=== PATIENT | female | born 1955 | race Hispanic/Latino ===

== ENCOUNTER 2022-04-17 06:01 | Day surgery (SDC) | payer OTHER ==
[2022-04-14 09:57] LABS: Calcium 9.9 mg/dL (8.4-10.2)
[2022-04-14 10:00] LABS: Hematocrit 41.2 % (30.3-42.9); Hemoglobin 14.1 gm/dl (10.1-14.3); Mean Corpuscular HGB Conc 34 % (30-34); Mean Corpuscular Volume 85 fl (79-97); Platelet Count 241 K/mm3 (140-440); Red Blood Count 4.84 M/mm3 (3.65-5.03); Red Cell Distribution Width 14.1 % (13.2-15.2)
--- NOTE | 2022-04-16 13:26 | Anesthesia Consultation ---
Anesthesia Consult and Med Hx Date of service: 04/17/22 - Airway Anesthetic Teeth Evaluation: Good ROM Head & Neck: Adequate Mental/Hyoid Distance: Adequate Mallampati Class: Class II Intubation Access Assessment: Probably Good - Pulmonary Exam CTA: Yes - Cardiac Exam Cardiac Exam: RRR - Pre-Operative Health Status ASA Pre-Surgery Classification: ASA3 Proposed Anesthetic Plan: General - Pulmonary Hx Smoking: Yes (quit 2001) Hx Respiratory Symptoms: No - Cardiovascular System Hx Hypertension: Yes Hx Heart Attack/AMI: No (hx diastolic CHF, most recent EF normal in 11/2021) Hx Percutaneous Transluminal Coronary Angioplasty (PTCA): No Hx Cardia Arrhythmia: No - Central Nervous System CVA: No Hx Back Pain: Yes - Endocrine Hx Renal Disease: No Hx Liver Disease: No Hx Insulin Dependent Diabetes: No Hx Non-Insulin Dependent Diabetes: No Hx Thyroid Disease: No - Other Systems Hx Obesity: Yes (BMI 51) - Additional Comments Anesthesia Medical History Comments: No hx anesthetic complications. Most recent cardiac studies on chart reviewed. No signs/symptoms decompensated HF at this time.
--- NOTE | 2022-04-16 18:01 | History and Physical Report ---
History of Present Illness Date of examination: 04/16/22 Date of admission: 04/17/22 Chief complaint: post menopausal bleeding History of present illness: Visit Type: Pre-Op CC: no complaints. History of Present Illness: Pt presents for Pre op Hystewroscopy. No c/o. .....................................................................Adrienne Macedo April 16, 2022 9:45 AM mask,Patient denies fever, cough, shortness of breath and exposure to COVID-19. All risk/benefits/alternatives were d/w pt and questions were addressed and answered. I stressed to pt that due to her h/o CHF and HTN the cardiac clearnce needs to be on the chart. When seen in the office my sx coordianted had not scanned the docuements but advised that she was cleared by anesthesia at the hospital for her procedrue. Pt did sign consent forms and all questions here addressed and answered. 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 of genital herpes: no Hx of STD: Hepatitis A Active Medications (reviewed today): losartan 100 mg tablet (losartan) furosemide 20 mg tablet (furosemide) nifedipine 60 mg tablet extended release 24hr (nifedipine) hydralazine 25 mg tablet (hydralazine) simvastatin 20 mg tablet (simvastatin) carvedilol 6.25 mg tablet (carvedilol) Vitamin C unspecified unspecified (ascorbic acid (vitamin c)) Current Allergies: No known allergies Past Medical History: Reviewed history from 02/12/2022 and no changes required: Hypertension CHF- dx'd Nov 2020 Past Surgical History: Reviewed history from 02/12/2022 and no changes required: negative Family History Summary: Reviewed history and no changes required: 04/16/2022 General Comments - FH: DM CA: brother and father Social History: Reviewed history from 02/12/2022 and no changes required: Smoking History: Patient has never smoked. Risk Factors: Smoked Tobacco Use: Never smoker Smokeless Tobacco Use: Never Passive Smoke Exposure: no HIV High Risk Behavior: no Exercise: no Seatbelt Use: 100 % Physical Exam Appearance: well developed, well nourished, no acute distress Other Exams Lungs: no rales, rhonchi, or wheezes Heart: S1, S2, no murmur, rub, or gallop Abdomen: soft, non-tender, no masses, bowel sounds normal Extremities: normal alignment, no joint enlargement, crepitus, masses or tenderness; normal tone and strength Genitourinary Exam Comments: deferred Past History Past Medical History: other (see hpi) Past Surgical History: other (see hpi) 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) Family/Genetic History: other (see hpi) Medications and Allergies Allergies Allergy/AdvReac Type Severity Reaction Status Date / Time lisinopril AdvReac Intermediate Unknown Verified 04/10/22 16:35 Home Medications Medication Instructions Recorded Confirmed Last Taken Type Cara Allergy 1 dose PO DAILY 04/13/22 04/13/22 Unknown History Aspirin [Vazalore] 81 mg PO DAILY 04/13/22 04/13/22 Unknown History Losartan [Cozaar] 100 mg PO QDAY 04/13/22 04/13/22 Unknown History NIFEdipine [Adalat cc] 60 mg PO DAILY 04/13/22 04/13/22 Unknown History Simvastatin 20 mg PO DAILY 04/13/22 04/13/22 Unknown History carvediloL [Coreg] 6.25 mg PO BID 04/13/22 04/13/22 Unknown History hydrALAZINE [Apresoline] 25 mg PO TID 04/13/22 04/13/22 Unknown History Active Meds: Active Medications Lactated Ringer's (Lactated Ringers) 1,000 mls @ 42 mls/hr IV DIRECT JOHAN Stop: 04/17/22 23:59 - Vital Signs Vital signs: Vital Signs Temp Pulse Resp BP Pulse Ox 97.9 F 74 20 192/82 95 04/14/22 09:30 04/14/22 09:30 04/14/22 09:30 04/14/22 09:30 04/14/22 09:30 Temp Pulse Resp BP Pulse Ox 97.9 F 74 20 192/82 95 04/14/22 09:30 04/14/22 09:30 04/14/22 09:30 04/14/22 09:30 04/14/22 09:30 - Physical Exam Cardiovascular: Normal S1, Normal S2 Lungs: Positive: Clear to auscultation Abdomen: Positive: normal appearance, soft. Negative: distention, tenderness, guarding Genitourinary (Female): Positive: other (deferred) Results Result Diagrams: 04/14/22 06:00 04/14/22 06:00 All other labs normal. Assessment and Plan - Patient Problems (1) Post-menopausal bleeding Status: Acute Plan to address problem: -admit for hysterscopy with D&C -consents signed and placed on the chart.
[~2022-04-17 06:01] MED LIST: LACTATED RINGERS 1,000 ML IV SCH
[2022-04-17] MEDS ORDERED: propofoL 200 MG/20 ML VIAL IV ONE (07:02)
[2022-04-17] MEDS ORDERED: LIDOCAINE MPF (2%) 20 MG/1 ML VIAL 5 ML ONE (07:02)
[2022-04-17] MEDS ORDERED: fentaNYL 100 MCG/2 ML INJ ONE (07:04)
[2022-04-17] MEDS ORDERED: HYDROcodone/ACETAMINOPHEN 5-325 MG TAB PO PRN (07:36)
[2022-04-17] MEDS ORDERED: ONDANSETRON 4 MG/2 ML INJ IV PRN (07:36)
[2022-04-17] MEDS ORDERED: fentaNYL 100 MCG/2 ML INJ IV PRN (07:36)
--- NOTE | 2022-04-17 07:36 | Anesthesia Day of Surgery ---
Anesthesia Day of Surgery - Day of Surgery Patient Examined: Yes Patient H&P Reviewed: Yes Patient is NPO: Yes Beta Blockers: Yes
[2022-04-17] MEDS ORDERED: SODIUM CHLORIDE 0.9% IRRIG SOLN 2000 ML IR ONE (07:38)
[2022-04-17] MEDS ORDERED: ePHEDrine SULFATE 50 MG/1 ML INJ ONE (08:17)
--- NOTE | 2022-04-17 08:45 | Operative Report ---
Operative Report Operative Report: Date of procedure: 04/17/22 Pre-operative diagnosis: Postmenopausal bleeding Post-operative diagnosis: Same plus endometrial mass Procedure name(s): Hysteroscopy dilatation and curettage Surgeon: Dr. Huggins Weight Reducing Technician: Certified surgical scrub assistant case manager Anesthesia: Gen. endotracheal anesthesia EBL:l minimal Urine output: 50 mL Fluids: 500 mL Findings: Thickened tissue inside the endometrium and clusters what appeared to be 3 separate clusters of tissue versus masses. Attempt was made to directly sample one of the masses via direct biopsy however not much tissue was obtained and curettage was done. Indications: Patient presents with postmenopausal bleeding. All risk benefits and alternatives were discussed with the patient. Consents were signed and placed on the chart. She was taken to the operating room for above-stated procedure.] Procedure: Patient was taken to the operating room where she was placed under general anesthesia. She was placed in dorsal lithotomy position with legs in Dg stirrups. She was then prepped and draped in sterile fashion. Straight catheterization was done. The anterior lip of the cervix was grasped with a tenaculum and the uterus was sounded to approximately 6-8 as at this point that the cervix was dilated to allow the passage of a hysteroscope. The above- stated findings were noted. Curettage was performed until a gritty texture was noted across all surfaces of the uterus. Hemostasis was noted to be excellent. Patient was taken to the recovery room awake and in stable condition. Patient was given Ancef prior to the onset of the procedure. All laps and needle counts were correct. Patient tolerated the procedure well.
--- NOTE | 2022-04-17 08:47 | Short Stay Summary ---
Short Stay Documentation Date of service: 04/17/22 - History H&P: dictated - Allergies and Medications Current Medications: Allergies lisinopril Adverse Reaction (Intermediate, Verified 04/10/22 16:35) Unknown cough Home Medications Medication Instructions Recorded Confirmed Last Taken Type Cara Allergy 1 dose PO DAILY 04/13/22 04/13/22 Unknown History Aspirin [Vazalore] 81 mg PO DAILY 04/13/22 04/13/22 Unknown History Losartan [Cozaar] 100 mg PO QDAY 04/13/22 04/13/22 Unknown History NIFEdipine [Adalat cc] 60 mg PO DAILY 04/13/22 04/13/22 Unknown History Simvastatin 20 mg PO DAILY 04/13/22 04/13/22 Unknown History carvediloL [Coreg] 6.25 mg PO BID 04/13/22 04/13/22 Unknown History hydrALAZINE [Apresoline] 25 mg PO TID 04/13/22 04/13/22 Unknown History Active Medications Hydrocodone Bitart/Acetaminophen (Hydrocodone/Acetaminophen 5-325 Mg Tab) 2 each PO ONCE PRN PRN Reason: Pain, Moderate (4-6) Stop: 04/17/22 12:00 Fentanyl (Fentanyl 100 Mcg/2 Ml Inj) 50 mcg IV Q5MIN PRN PRN Reason: Pain , Severe (7-10) Stop: 04/17/22 20:00 Lactated Ringer's (Lactated Ringers) 1,000 mls @ 42 mls/hr IV DIRECT JOHAN Stop: 04/17/22 23:59 Last Admin: 04/17/22 07:00 Dose: 42 mls/hr Ondansetron HCl (Ondansetron 4 Mg/2 Ml Inj) 4 mg IV ONCE PRN PRN Reason: Nausea And Vomiting Stop: 04/17/22 10:00 - Brief post op/procedure progress note Date of procedure: 04/17/22 Pre-op diagnosis: Postmenopausal bleeding Post-op diagnosis: same Anesthesia: GETA Findings: See operative report Surgeon: PARVIZ MORALES Estimated blood loss: minimal Pathology: list (Uterine contents) Specimen disposition: to lab Condition: stable - Hospital course Hospital course: Patient was admitted for above-stated procedure that was not complicated patient will have recovery in the PACU and was discharged home when she has met discharge criteria. Patient will follow up in office in 1 week. - Disposition Condition at discharge: Good Disposition: 01 HOME / SELF CARE / HOMELESS - Discharge Diagnoses (1) Post-menopausal bleeding Status: Acute Short Stay Discharge Plan Activity: no restrictions Weight Bearing Status: Weight Bear as Tolerated Diet: regular Follow up with: BERRY TORRES MD [Primary Care Provider] - 7 Days PARVIZ MORALES MD [Staff Physician] - 7 Days Prescriptions: Ibuprofen [Motrin 800 MG tab] 800 mg PO Q8HR PRN #30 tablet PRN Reason: Pain, Moderate (4-6) oxyCODONE /ACETAMINOPHEN [Percocet 5/325] 1 tab PO Q4HR #5 tab
[2022-04-17 10:06] VITALS: BP 138/75
--- NOTE | 2022-04-17 12:02 | Post Anesthesia Evaluation ---
- Post Anesthesia Evaluation Patient Participated: Yes Airway Patent: Yes Stable Respiratory Function: Yes Nausea/Vomiting: No Temp > 96.8F: Yes Pain Manageable: Yes Adequeate Hydration: Yes Anesthesia Complications: No
== END 2022-04-17 10:20 | disposition home or self-care (01) ==
LOC: OR 06:01
PROVIDERS: ATTEND Obstetrics & Gynecology
DX: N95.0 Postmenopausal bleeding (principal); N85.8 Other specified noninflammatory disorders of uterus; N85.00 Endometrial hyperplasia, unspecified; I11.0 Hypertensive heart disease with heart failure; I50.9 Heart failure, unspecified; E66.9 Obesity, unspecified; E78.00 Pure hypercholesterolemia, unspecified; M19.90 Unspecified osteoarthritis, unspecified site; F41.9 Anxiety disorder, unspecified; Z72.89 Other problems related to lifestyle; Z79.899 Other long term (current) drug therapy; Z88.8 Allergy status to other drugs, medicaments and biological substances; Z79.82 Long term (current) use of aspirin; Z87.891 Personal history of nicotine dependence; Z20.822 Contact with and (suspected) exposure to COVID-19; Z87.440 Personal history of urinary (tract) infections; Z98.890 Other specified postprocedural states; Z68.43 Body mass index [BMI] 50.0-59.9, adult
CPT/HCPCS: 36415; 58558; 80048; 85027; 88305; J2704; J3010; J3490; J7120; U0003